=== PATIENT | male | born 1960 | race Caucasian/White ===

== ENCOUNTER 2017-10-06 09:18 | Emergency (ER) | payer MEDICARE ==
[~2017-10-06] VITALS: Ht 165.1 cm; Wt 63.5 kg
[2017-10-06 09:25] VITALS: BP 133/83
--- NOTE | 2017-10-06 10:26 | NUR ---
CALLED [employer] TO SEE THE PATIENT.
--- NOTE | 2017-10-06 10:40 | NUR ---
MARITA MOLINA AT BS.
--- NOTE | 2017-10-06 10:50 | NUR ---
PT WANTS TO LEAVE, REFUSES TREATMENT. AWARE.
== END 2017-10-06 11:01 | disposition left against medical advice (07) ==
LOC: ER 09:21
DX: Z04.8 Encounter for examination and observation for other specified reasons (principal); Z59.0 Homelessness
CPT/HCPCS: 99283; A4606; Z7610